=== PATIENT | female | born 1950 | race Caucasian/White ===

== ENCOUNTER 2025-07-08 08:35 | Inpatient (IN) | payer MEDICARE, OTHER ==
[~2025-07-08] VITALS: Ht 160 cm; Wt 63.5 kg
[2025-07-08] VITALS (8 sets, daily range): BP systolic 116–142; BP diastolic 46–78; TEMP 97.8–98.3; O2SAT 98–100
[2025-07-08 09:25] LABS: CALCIUM, SERUM 8.9 mg/dL (8.5-10.1); CREATININE 0.9 mg/dL (0.6-1.3); SODIUM SERUM 141 mmol/L (136-145); UREA NITROGEN, BLOOD 37 mg/dL (7-18)
[2025-07-08 09:27] LABS: SERUM AMMONIA 9 umol/L (11-32)
[2025-07-08 09:30] LABS: PLATELET COUNT (AUTO) 337 K/uL (150-450); RED BLOOD CELL COUNT(AUTO) 2.80 MIL/uL (4.0-5.2); RED CELL DISTRIBUTION WIDTH 21.1 % (11.5-15.0); WHITE BLOOD COUNT (AUTO) 11.8 K/uL (4.3-11.0)
[2025-07-08 09:30] LABS: APPEARANCE,URINE CLEAR (CLEAR); BLOOD, URINE TRACE-INTA Ery/uL (NEGATIVE); LEUKOCYTE ESTERASE ,URINE NEGATIVE (NEGATIVE); NITRITE, URINE NEGATIVE (NEGATIVE); UGLUCOSE NEGATIVE (NEGATIVE)
[2025-07-08 09:31] LABS: ASPARTATE AMINOTRANSFERASE 19 U/L (15-37); TOTAL PROTEIN, SERUM 7.5 g/dL (6.4-8.2)
[2025-07-08 09:33] LABS: ALCOHOL, BLOOD < 3 mg/dL (0-10)
[2025-07-08 09:33] LABS: AMPHETAMINE, URINE NEGATIVE (NEGATIVE); BARBITURATE, URINE NEGATIVE (NEGATIVE); BENZODIAZEPINE, URINE POSITIVE (NEGATIVE); CANNABINOID, URINE NEGATIVE (NEGATIVE); COCCAINE, URINE NEGATIVE (NEGATIVE); OPIATE, URINE NEGATIVE (NEGATIVE)
[2025-07-08 09:37] LABS: INR 1.05 (0.91-1.10)
[2025-07-08 09:40] LABS: ADD URINE CULTURE YES
[2025-07-08] MEDS ORDERED: ATOR40TA PO (09:41)
[2025-07-08] MEDS ORDERED: PANT40TA49 PO (09:41)
[2025-07-08] MEDS ORDERED: MEMA5TAB42 PO (09:41)
[2025-07-08] MEDS ORDERED: LEVO88TA5 PO (09:41)
[2025-07-08] MEDS ORDERED: CYAN100096 PO (09:41)
[2025-07-08] MEDS ORDERED: FAMO40TA7 PO (09:41)
[2025-07-08] MEDS ORDERED: AMLO1CAP6 PO (09:41)
[2025-07-08 10:09] LABS: LYMPHOCYTES % (MANUAL) 15 % (16-48); MONOCYTES % (MANUAL) 1 % (0-11.0); NEUTROPHILS % (MANUAL) 84 (42-76); PLATELET ESTIMATE ADEQUATE
[2025-07-08] MEDS ORDERED: CEFTRIAXONE 1GM BAG (ER ONLY) 50 ML IV ONE (11:13)
[2025-07-08] MEDS: CEFTRIAXONE 1GM BAG (ER ONLY) 50 ML IV ONE (11:18)
[2025-07-08] MEDS: IV NS 0.9% 1,000 ML BAG IV ONE (11:19)
[2025-07-08] MEDS ORDERED: MAG HYDROX/AL HYDROX/SIMETH 30 ML UDC PO PRN (12:00)
[2025-07-08] MEDS ORDERED: MAGNESIUM HYDROXIDE 30 ML UDC PO PRN (12:00)
[2025-07-08] MEDS ORDERED: Z GUARD REMEDY 4 OZ OINT TP PRN (12:00)
[2025-07-08] MEDS ORDERED: HYDROCODONE/APAP 5/325MG TABLET PO PRN (12:00)
[2025-07-08] MEDS ORDERED: ONDANSETRON HCL/PF 4 MG/2 ML VIAL IVP PRN (12:00)
[2025-07-08] MEDS: PANTOPRAZOLE 40 MG VIAL IV SCH (12:14)
[2025-07-08] MEDS: POTASSIUM CHLORIDE 20 MEQ TAB.PRT.SR PO ONE (12:41)
[2025-07-08] MEDS: SOD FERRIC GLUC 125 MG in IV NS 0.9% 100 ML IV SCH (14:00)
[2025-07-08] MEDS: IV NS 0.9% 1,000 ML IV PRN (17:07)
[2025-07-08] MEDS: ATORVASTATIN 40 MG TABLET PO SCH (18:03)
[2025-07-08] MEDS: ACETAMINOPHEN 325 MG TABLET PO PRN (21:39)
[2025-07-08] MEDS: MEMANTINE HCL 5 MG TABLET PO SCH (21:39)
[2025-07-09 01:51] VITALS: BP 117/53; TEMP 98.2; O2SAT 100
[2025-07-09 08:17] LABS: PLATELET COUNT (AUTO) 285 K/uL (150-450); RED BLOOD CELL COUNT(AUTO) 3.25 MIL/uL (4.0-5.2); RED CELL DISTRIBUTION WIDTH 21.3 % (11.5-15.0); WHITE BLOOD COUNT (AUTO) 8.0 K/uL (4.3-11.0)
[2025-07-09] MEDS: LEVOTHYROXINE SODIUM 88 MCG TABLET PO SCH (08:34)
[2025-07-09] MEDS: BENAZEPRIL HCL 20 MG TABLET PO SCH (08:35)
[2025-07-09] MEDS: CYANOCOBALAMIN 500 MCG TABLET PO SCH (08:35)
[2025-07-09] MEDS: AMLODIPINE BESYLATE 5 MG TABLET PO SCH (08:35)
[2025-07-09 09:55] VITALS: BP 132/73; TEMP 97.9; O2SAT 100
[2025-07-09] MEDS: CEFTRIAXONE 1 G in IV D5W 50 ML IV SCH (10:02)
[2025-07-09 10:07] LABS: LDL 101.0 mg/dL (0-99)
[2025-07-09 10:09] LABS: CALCIUM, SERUM 8.4 mg/dL (8.5-10.1); CREATININE 0.7 mg/dL (0.6-1.3); PHOSPHORUS 3.5 mg/dL (2.5-4.9); SODIUM SERUM 141.0 mmol/L (136-145); UREA NITROGEN, BLOOD 23.0 mg/dL (7-18)
[2025-07-09 10:12] LABS: IRON, SERUM 19.0 ug/dl (50-175)
[2025-07-09 12:24] VITALS: BP 150/83; TEMP 97.7; O2SAT 99
[2025-07-09 16:00] VITALS: BP 112/59; TEMP 97.9; O2SAT 99
[2025-07-09 20:00] VITALS: BP 122/64; TEMP 97.9; O2SAT 99
[2025-07-10] VITALS: BP 150/56; TEMP 98.1; O2SAT 99
[2025-07-10 04:00] VITALS: BP 117/52; TEMP 97.9; O2SAT 95
[2025-07-10 07:06] LABS: FOLIC ACID 10.4 ng/mL (>3.0)
[2025-07-10 08:00] VITALS: BP 133/63; TEMP 97.9; O2SAT 100
[2025-07-10 08:09] LABS: IMMUNOGLOBULIN A, SERUM 255 mg/dL (64-422); IMMUNOGLOBULIN M, SERUM 36 mg/dL (26-217)
[2025-07-10 08:18] LABS: PLATELET COUNT (AUTO) 313 K/uL (150-450); RED BLOOD CELL COUNT(AUTO) 3.67 MIL/uL (4.0-5.2); RED CELL DISTRIBUTION WIDTH 21.7 % (11.5-15.0); WHITE BLOOD COUNT (AUTO) 7.5 K/uL (4.3-11.0)
[2025-07-10 08:22] LABS: CALCIUM, SERUM 8.8 mg/dL (8.5-10.1); CREATININE 0.8 mg/dL (0.6-1.3); SODIUM SERUM 141.0 mmol/L (136-145); UREA NITROGEN, BLOOD 21.0 mg/dL (7-18)
[2025-07-10 12:00] VITALS: BP 143/67; TEMP 98.1; O2SAT 100
[2025-07-10 12:07] LABS: FREE KAPPA LT CHAINS SERUM 19.0 mg/L (3.3-19.4); FREE LAMBDA LT CHAIN SERUM 14.1 mg/L (5.7-26.3); KAPPA/LAMBDA RATIO SERUM 1.35 (0.26-1.65)
[2025-07-10 16:00] VITALS: BP 135/63; TEMP 97.9; O2SAT 100
[2025-07-10 20:00] VITALS: BP 122/68; TEMP 97.9; O2SAT 99
[2025-07-10] MEDS: PANTOPRAZOLE 40 MG TABLET.DR PO SCH (23:14)
[2025-07-11] VITALS: BP 156/66; TEMP 98.1; O2SAT 97
[2025-07-11 04:00] VITALS: BP_SYST 120; BP_SYST 156; BP_DIAS 60; BP_DIAS 66; TEMP 98.1; TEMP 98.2; O2SAT 97; O2SAT 98
[2025-07-11 07:29] LABS: PLATELET COUNT (AUTO) 313 K/uL (150-450); RED BLOOD CELL COUNT(AUTO) 3.65 MIL/uL (4.0-5.2); RED CELL DISTRIBUTION WIDTH 22.0 % (11.5-15.0); WHITE BLOOD COUNT (AUTO) 9.4 K/uL (4.3-11.0)
[2025-07-11 07:30] VITALS: BP 153/69; TEMP 98.2; O2SAT 99
[2025-07-11] MEDS ORDERED: FERR325T28 PO (08:51)
[2025-07-11 20:00] VITALS: BP 125/68; TEMP 98.1; O2SAT 98
[2025-07-12] VITALS: BP 125/47; TEMP 98.5; O2SAT 99
[2025-07-12 08:00] VITALS: BP 129/59; TEMP 97.6; O2SAT 98
[2025-07-12 08:27] LABS: PLATELET COUNT (AUTO) 270 K/uL (150-450); RED BLOOD CELL COUNT(AUTO) 3.33 MIL/uL (4.0-5.2); RED CELL DISTRIBUTION WIDTH 22.6 % (11.5-15.0); WHITE BLOOD COUNT (AUTO) 6.6 K/uL (4.3-11.0)
[2025-07-12] MEDS ORDERED: CYANOCOBALAMIN 500 MCG TABLET PO SCH (09:00)
[2025-07-12 20:00] VITALS: BP 155/75; TEMP 97.9; O2SAT 98
[2025-07-13 04:03] VITALS: BP 136/72; TEMP 97.7; O2SAT 99
[2025-07-13 04:07] LABS: *SPE A/G RATIO 1.0 (0.7-1.7); *SPE ALBUMIN 3.5 g/dL (2.9-4.4); *SPE ALPHA-1-GLOBULIN 0.3 g/dL (0.0-0.4); *SPE ALPHA-2-GLOBULIN 1.0 g/dL (0.4-1.0); *SPE BETA GLOBULIN 1.3 g/dL (0.7-1.3); *SPE GLOBULIN, TOTAL 3.4 g/dL (2.2-3.9); *SPE M-SPIKE Not Observed g/dL (Not Observed); *SPE PROTEIN TOTAL 6.9 g/dL (6.0-8.5); *SPEGAMMA GLOBULIN 0.8 g/dL (0.4-1.8)
[2025-07-13 07:50] LABS: PLATELET COUNT (AUTO) 297 K/uL (150-450); RED BLOOD CELL COUNT(AUTO) 3.56 MIL/uL (4.0-5.2); RED CELL DISTRIBUTION WIDTH 23.3 % (11.5-15.0); WHITE BLOOD COUNT (AUTO) 7.2 K/uL (4.3-11.0)
[2025-07-13 08:00] VITALS: BP 125/60; TEMP 98.8; O2SAT 98
[2025-07-13 16:00] VITALS: BP 132/62; TEMP 98.8; O2SAT 99
[2025-07-13 20:00] VITALS: BP 118/60; TEMP 99.9; O2SAT 100
[2025-07-13 22:08] VITALS: BP 118/60; TEMP 99.9; O2SAT 100
[2025-07-14 06:58] LABS: PLATELET COUNT (AUTO) 301 K/uL (150-450); RED BLOOD CELL COUNT(AUTO) 3.68 MIL/uL (4.0-5.2); RED CELL DISTRIBUTION WIDTH 24.4 % (11.5-15.0); WHITE BLOOD COUNT (AUTO) 8.0 K/uL (4.3-11.0)
== END 2025-07-14 09:00 | disposition home or self-care (01) | DRG 812 ==
LOC: ER 08:47 → TELE 11:11 → MED 07-12 02:55
PROVIDERS: ADMIT Nurse Practitioner Acute Care; ATTEND Nurse Practitioner Acute Care
PROC: 30233N1 Transfusion of Nonautologous Red Blood Cells into Peripheral Vein, Percutaneous Approach (ICD-10-PCS; 2025-07-08)
PROC: 0DB68ZX Excision of Stomach, Via Natural or Artificial Opening Endoscopic, Diagnostic (ICD-10-PCS; principal; 2025-07-10 09:20)
DX: D50.9 Iron deficiency anemia, unspecified (principal); D72.829 Elevated white blood cell count, unspecified; E03.9 Hypothyroidism, unspecified; I10 Essential (primary) hypertension; F03.A0 Unspecified dementia, mild, without behavioral disturbance, psychotic disturbance, mood disturbance, and anxiety; K21.9 Gastro-esophageal reflux disease without esophagitis; K29.70 Gastritis, unspecified, without bleeding; E78.5 Hyperlipidemia, unspecified; Z88.0 Allergy status to penicillin; E86.0 Dehydration; Z87.891 Personal history of nicotine dependence
CPT/HCPCS: 36415; 71045-TC; 80048-TC; 80061-TC; 80076-TC; 81001; 82140-TC; 82607-TC; 82728-TC; 82784; 82962-TC; 83540-TC; 83605-TC; 83735-TC; 84100-TC; 84155; 84165; 84439-TC; 84443-TC; 84484-TC; 85025-TC; 85027-TC; 85730-TC; 86334; 86850-TC; 87040-TC; 87086-TC; A4223; G0378; G0480; J0696; J2470; J2704; J2916; J7030; J7060; P9016